=== PATIENT | female | born 1985 | race Caucasian/White ===

== ENCOUNTER 2020-10-09 22:08 | Inpatient (IN) | payer OTHER ==
[~2020-10-09] VITALS: Ht 157.5 cm; Wt 81.0 kg
[2020-10-09 22:53] LABS: HEMATOCRIT 29.1 % (36.0-47.0); HEMOGLOBIN 8.3 g/dl (12.0-15.5); MEAN CORPUSCULAR HEMOGLOBIN 21.8 pg (27.0-33.0); MEAN CORPUSCULAR HGB CONC 28.5 g/dl (32.0-36.5); MEAN CORPUSCULAR VOLUME 76.6 fl (80.0-96.0); PLATELET COUNT, AUTOMATED 187 10^3/uL (150-450); WHITE BLOOD COUNT 6.3 10^3/uL (4.0-10.0)
[2020-10-09] MEDS ORDERED: ONDANSETRON 4 MG ORAL DISINTEGRATING TAB PO ONE (23:00)
[2020-10-09 23:22] LABS: AMPHETAMINES LEVEL URINE NEGATIVE (NEGATIVE); BARBITURATES URINE NEGATIVE (NEGATIVE); BENZODIAZEPINES URINE NEGATIVE (NEGATIVE); CANNABINOIDS URINE NEGATIVE (NEGATIVE); COCAINE METABOLITE URINE NEGATIVE (NEGATIVE); METHADONE URINE NEGATIVE (NEGATIVE); OPIATES URINE NEGATIVE (NEGATIVE); PHENCYCLIDINE URINE NEGATIVE (NEGATIVE)
[2020-10-09 23:38] LABS: ACETAMINOPHEN LEVEL < 2.0 UG/ML (10.0-30.0); ALBUMIN 2.8 GM/DL (3.2-5.2); ALT/SGPT 15 U/L (12-78); BILIRUBIN,DIRECT 0.1 MG/DL (0.0-0.2); BILIRUBIN,TOTAL 0.2 MG/DL (0.2-1.0); BLOOD UREA NITROGEN 9 MG/DL (7-18); CALCIUM LEVEL 7.8 MG/DL (8.5-10.1); CARBON DIOXIDE LEVEL 23 MEQ/L (21-32); CHLORIDE LEVEL 111 MEQ/L (98-107); CREATININE FOR GFR 0.53 MG/DL (0.55-1.30); ETHYL ALCOHOL (ETHANOL) 0.119 % (0.000-0.010); GLOMERULAR FILTRATION RATE > 60.0 (>60); GLUCOSE, FASTING 87 MG/DL (70-100); POTASSIUM SERUM 3.4 MEQ/L (3.5-5.1); SALICYLATE LEVEL < 1.7 MG/DL (5.0-30.0); SODIUM LEVEL 143 MEQ/L (136-145); TOTAL PROTEIN 6.7 GM/DL (6.4-8.2)
[2020-10-10 00:38] LABS: RSV AMPLIFICATION NEGATIVE (NEGATIVE)
[2020-10-10] MEDS ORDERED: MAALOX 30 ML SUSP *UDC PO PRN (01:05)
[2020-10-10] MEDS ORDERED: traZODone 50 MG TAB PO PRN (01:05)
[2020-10-10] MEDS ORDERED: MOM 30ML SUSPENSION UDC PO PRN (01:05)
[2020-10-10] MEDS ORDERED: LORazepam 2 MG TAB PO PRN (01:10)
[2020-10-10] MEDS: THIAMINE 100 MG TAB PO SCH ×3 (01:13→20:18)
[2020-10-10 03:12] VITALS: BP 126/67
[2020-10-10] MEDS: ACETAMINOPHEN TAB 650MG DOSE (2X325MG) PO PRN ×3 (03:27→20:18)
[2020-10-10] MEDS: MULTIVITAMINS/MINERALS THERAP 1 TAB PO SCH (08:53)
[2020-10-10] MEDS: FOLIC ACID 1 MG TAB PO SCH (08:53)
[2020-10-10 11:22] VITALS: BP 114/61
[2020-10-10 14:00] VITALS: BP 124/60
--- NOTE | 2020-10-10 14:01 | HPEPDOC ---
General Date of Admission October 10, 2020 at 01:02 Date of Service: October 10, 2020 Chief Complaint The patient is a 35-year-old female admitted with a reason for visit of Unspecified Depressive Do. Source: Patient History of Present Illness Patient's 35 years old female with past history of EtOH abuse, gastric bypass surgery, depression, anxiety presented hospital with suicidal ideation. Of note patient is 25 weeks . Patient stated that she feels depressed because she can't stop drinking. Reports that she quit taking all her medications when she learned she was and continued to drink ETOH, reports that she has been depressed but that the found out that she was and stopped taking her medications. Pt was brought to the ED by police on a 9.41 after sending text messages with pictures of her by the river to her family & telling them that she was going to jump in. During my interview patient denied fever, chills, nausea, vomiting, chest pain, palpitations diarrhea or dysuria Home Medications No Active Prescriptions or Reported Meds Allergies Coded Allergies: No Known Allergies (Unverified , 10/09/20) Past Medical History Medical History EtOH abuse, gastric bypass surgery, depression, anxiety Surgical History Gastric bypass surgery Family History Mother - HTN, Diabetic, obesity Social History * Smoker: Denies Alcohol: heavy Drugs: denies A-FIB/CHADSVASC A-FIB History Current/History of A-Fib/PAF?: No Current PO Anticoag Therapy: No Review of Systems Constitutional: Denies: Chills, Fever Eyes: Denies: Pain ENT: Denies: Head Aches Skin: Denies: Rash, Lesions Pulmonary: Denies: Cough Cardiovascular: Denies: Chest Pain Gastrointestinal: Denies: Nausea, Vomiting Genitourinary: Denies: Dysuria Hematologic: Denies: Bruising Endocrine: Denies: Polydipsia Musculoskeletal: Denies: Neck Pain Neurological: Denies: Weakness Psych: Reports: Depression Physical Examination General Exam: Positive: Alert, Cooperative Eye Exam: Positive: PERRLA ENT Exam: Positive: Atraumatic Neck Exam: Positive: Supple Chest Exam: Positive: Clear to auscultation Heart Exam: Positive: Rate Normal Telemetry: Positive: No significant arrhythmia Abdomen Exam: Positive: Normal bowel sounds Skin Exam: Positive: Nl turgor and temperature Neuro Exam: Positive: Normal Gait Psych Exam: Positive: Oriented x 3 Vital Signs Vital Signs Date Time Temp Pulse Resp B/P (MAP) Pulse Ox O2 Delivery O2 Flow Rate FiO2 10/10/20 11:22 73 114/61 10/10/20 03:12 99.3 20 98 Room Air Laboratory Data Labs 24H Laboratory Tests 2 10/09/20 22:44: Nucleated Red Blood Cells % (auto) 0.0, Anion Gap 9, Glomerular Filtration Rate > 60.0, Calcium Level 7.8L, Total Bilirubin 0.2, Direct Bilirubin 0.1, Aspartate Amino Transf (AST/SGOT) 21, Alanine Aminotransferase (ALT/SGPT) 15, Alkaline Phosphatase 65, Total Protein 6.7, Albumin 2.8L, Albumin/Globulin Ratio 0.7L, Thyroid Stimulating Hormone (TSH) 1.580, Salicylates Level < 1.7L, Urine Opiates Screen NEGATIVE, Urine Methadone Screen NEGATIVE, Acetaminophen Level < 2.0L, Urine Barbiturates Screen NEGATIVE, Urine Phencyclidine Screen NEGATIVE, Urine Amphetamines Screen NEGATIVE, Urine Benzodiazepines Screen NEGATIVE, Urine Cocaine Metabolite Screen NEGATIVE, Urine Cannabinoids Screen NEGATIVE, Ethyl Alcohol Level 0.119H 10/09/20 23:49: Coronavirus (COVID-19)(PCR) NEGATIVE, Influenza Type A (RT-PCR) NEGATIVE, Influenza Type B (RT-PCR) NEGATIVE, Respiratory Syncytial Virus (PCR) NEGATIVE CBC/BMP Laboratory Tests 10/09/20 22:44 Assessment/Plan Patient's 35 years old female with past history of EtOH abuse, gastric bypass surgery, depression, anxiety presented hospital with suicidal ideation. Of note patient is 25 weeks . Patient stated that she feels depressed because she can't stop drinking. Reports that she quit taking all her medications when she learned she was and continued to drink ETOH, reports that she has been depressed but that the found out that she was and stopped taking her medications. Pt was brought to the ED by police on a 9.41 after sending text messages with pictures of her by the river to her family & telling them that she was going to jump in. During my interview patient denied fever, chills, nausea, vomiting, chest pain, palpitations diarrhea or dysuria Problems (1) Depression with suicidal ideation Status: Acute Problem Text: Deferred treatment to psych team (2) Second trimester Status: Chronic Problem Text: f/u with [facility] PREPAR[facility] OPERATOR team in the outpatient settings (3) ETOH abuse Status: Chronic Problem Text: continue CIWA Plan / VTE VTE Prophylaxis Ordered?: No VTE Exclusion Mechanical Proph: Low Risk for VTE IBRAHIMA CONRAD DO October 10, 2020 14:01
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
[2020-10-10] MEDS ORDERED: SERTRALINE HCL 25 MG TABLET PO ONE (16:00)
[2020-10-10 16:17] VITALS: BP 100/53
[2020-10-10 20:19] VITALS: BP 124/70
[2020-10-10] MEDS ORDERED: diphenhydrAMINE 25MG CAP PO ONE (21:25)
[2020-10-10 22:00] VITALS: BP 124/70
[2020-10-11 06:00] VITALS: BP 107/61
[2020-10-11] MEDS: SERTRALINE HCL 50 MG TAB PO SCH (08:34)
[2020-10-11] MEDS: THIAMINE 100 MG TAB PO SCH ×2 (08:34→20:56)
[2020-10-11] MEDS: FOLIC ACID 1 MG TAB PO SCH (08:34)
[2020-10-11] MEDS: MULTIVITAMINS/MINERALS THERAP 1 TAB PO SCH (08:34)
[2020-10-11] MEDS: ACETAMINOPHEN TAB 650MG DOSE (2X325MG) PO PRN ×2 (08:55→20:56)
[2020-10-11] MEDS ORDERED: hydrOXYzine 25 MG TAB PO PRN (11:30)
[2020-10-11 14:00] VITALS: BP 121/68
[2020-10-11 16:18] VITALS: BP 117/63
--- NOTE | 2020-10-11 16:25 | MHIPNPDOC ---
[facility] Progress Note Progress Note DATE OF SERVICE: 10/11/20 HISTORY: Patient is a 35 -year-old , Unemployed, Domiciled, , female, who reports that she is 25 weeks ", alcoholic, paranoid" with suicidal ideations and was brought to [facility] for her self harm thoughts. Feels depressed because she can't stop drinking. Reports that she quit taking all her medications when she learned she was and continued to drink ETOH, reports that she has been depressed but that the found out that she was and stopped taking her medications. Her depression was worse when she stopped. She drinks a bottle of liquor a day. She drinks ETOH to "shut my head down." States that she has been in rehab before. She didn't want her baby taken away because of her drinking and had refused to tell her WATCH ADJUSTER that she was . Worries that she will lose the child by CPS if she continues to continue drinking. She wants to be sober, wants to keep her baby and reports that she has been to rehab 4-5 times in 3 years. "I want to go back on anti-depressants that are ok for babies". PER ED REPORT: Pt was brought to the ED by police on a 9.41 after sending text messages with pictures of her by the [employer] to her family & telling them that she was going to jump in. Family members called police & [place]. Pt states that she posted a video to Face book of her by the [employer] & that she sent messages with pictures to her cousin & . She states "I didn't say I was going to kill myself, but I didn't say I wasn't going to either." Pt admits that she has had SI for the past few days & that she may have jumped into the river if the police had not found her. Pt states that she is 25 weeks & she has been thinking about ways to "get rid of the baby" such as cutting it out of her stomach. She is afraid that after the baby is born she will have thoughts about wanting to kill it. Pt denies HI. She denies any hx of self-harm. She states that in 2014 she held a razor to her wrist with the intent to kill herself, but she decided to get help & did not actually cut herself. Main stressors are marital px's & alcohol use. Pt states that she & her "fight about everything" & it is all her fault because she is insecure. She states that she made her leave on 10/04/20 but she is upset because he actually left & did not "fight for me." Pt c/o depressed mood, anxiety, anger, poor concentration, poor sleep, & excessive appetite. Pt has a hx of MDD, anxiety, & alcohol use d/o with four admissions to [facility] under the last names of Carlos & Phelan. Pt does not currently have OP tx. She states that she was in tx at [facility] but showed up to an appoint ment drunk in March 2020 so they closed her case. She went to rehab after that & then got shortly after rehab. She states that she has her first therapy appointment at [facility] on 10/13/20. Pt is not currently no meds but states "I need to be." Pt denies drug use & her tox screen was negative. Pt states that she usually drinks at least once a week but has been drinking daily for the past three days. She states that she drinks a "small or medium bottle of hard liquor" when she drinks. Her MARYLIN was 0.119 upon arrival. VITAL SIGNS: See below. CURRENT MEDICATIONS: See below. MENTAL STATUS EXAMINATION: Patient is a 35 -year-old , Unemployed, Domiciled, , female, who reports that she is 25 weeks ", alcoholic, paranoid" with suicidal ideations and was brought to [facility] for her self harm thoughts. Feels depressed because she can't stop drinking. Speech: Is fluid, conversant, normal rate, tone and volume Language skills are intact Thought processes including: linear and goal oriented Thought content: denies depression and anxiety. Denies suicidal/homicidal ideation, planning or intent. Abstract reasoning, and computation: fair Description of associations: denies, none observed Description of abnormal or psychotic thoughts: denies, none observed. Judgment: fair Insight: fair Orientation: alert and oriented to person, place, time and situation Recent and remote memory: intact Attention span and concentration: good Language: expansive Fund of knowledge: average Mood: Euthymic Mood Affect: reactive DIAGNOSES: Major Depressive Disorder, recurrent, moderate Borderline Personality Generalized Anxiety Alcohol Use Disorder Alcohol Intoxication ASSESSMENT: Patient reports no suicidal ideation. Patient mentions Wellbutrin as an adjunct to Zoloft. Educated patient on the possible teratogenic effects based on no controlled studies on women have been done and suggestions that Wellbutrin not be started while patient is . She reports that she is anxious, feeling overwhelmed thinking about her children. Her children are being supervised by her Sister and that her Sister can be more strict with her children than she normally is. She states her anxiety is because she worries about her children and is more anxious at night when she wants to be home. She states her depression is 5/10. She is future oriented, "wants to put her life back on track" and has names several coping skills that she will utilize when she is discharged. Reviewed Zoloft and Hydroxyzine with patient, patient wonders if she needs an increase in Zoloft, educated that this was only started yesterday and can be increased by her outpatient provider. Patient is requesting to be discharged tomorrow. She no longer has any abnormal psychiatric symptoms. She mets criteria for discharge tomorrow. MANAGEMENT PLAN: Continue all medications as ordered. Patient ordered Hydroxyzine 25 mg BID PRN for anxiety TIME SPENT: 25 minutes. Vital Signs Vital Signs Date Time Temp Pulse Resp B/P (MAP) Pulse Ox O2 Delivery O2 Flow Rate FiO2 10/11/20 14:00 71 121/68 10/11/20 06:00 98.3 18 98 Room Air Current Medications Current Medications Medications (Trade) Dose Ordered Sig/Babak Route PRN Reason Start Time Stop Time Status Last Admin Dose Admin Acetaminophen (Tylenol Tab) 650 mg Q6HP PRN PO HEADACHE or DISCOMFORT 10/10/20 01:05 10/11/20 08:55 Al Hydrox/Mg Hydrox/Simethicone (Mylanta) 30 ml Q4HP PRN PO HEARTBURN/INDIGESTION 10/10/20 01:05 Folic Acid (Folic Acid) 1 mg DAILY PO 10/10/20 09:00 10/11/20 08:34 Home Med (Med Rec Complete!) ASDIRECTED XX 10/09/20 23:50 10/09/20 23:57 DC Hydroxyzine HCl (Atarax) 25 mg Q4HP PRN PO ANXIETY/AGITATION 10/11/20 11:30 10/11/20 11:58 Lorazepam (Ativan) 2 mg ASDIRECTED PRN PO SEE PROTOCOL 10/10/20 01:10 Magnesium Hydroxide (Milk Of Magnesia) 30 ml DAILYPRN PRN PO CONSTIPATION 10/10/20 01:05 Multivitamins (Theragram-M) 1 tab DAILY PO 10/10/20 09:00 10/11/20 08:34 Sertraline HCl (Zoloft) 50 mg DAILY PO 10/11/20 09:00 10/11/20 08:34 Thiamine HCl (Thiamine HCl) 100 mg BID PO 10/10/20 01:13 10/12/20 09:01 10/11/20 08:34 Trazodone HCl (Desyrel) 50 mg QHSP PRN PO INSOMNIA 10/10/20 01:05 Allergies Coded Allergies: No Known Allergies (Unverified , 10/09/20) CELI PARDO NP October 11, 2020 16:17
[2020-10-11] MEDS: hydrOXYzine 25 MG TAB PO PRN (20:56)
[2020-10-11 22:00] VITALS: BP 130/70
[2020-10-12 06:25] VITALS: BP 106/58
[2020-10-12 06:44] VITALS: BP 106/58
[2020-10-12] MEDS: FOLIC ACID 1 MG TAB PO SCH (08:34)
[2020-10-12] MEDS: hydrOXYzine 25 MG TAB PO PRN (08:34)
[2020-10-12] MEDS: SERTRALINE HCL 50 MG TAB PO SCH (08:35)
[2020-10-12] MEDS: THIAMINE 100 MG TAB PO SCH (08:35)
[2020-10-12] MEDS: MULTIVITAMINS/MINERALS THERAP 1 TAB PO SCH (08:35)
[2020-10-12] MEDS ORDERED: HYDR-3363 PO (09:12)
[2020-10-12] MEDS ORDERED: SERT50TA29 PO (09:12)
--- NOTE | 2020-10-12 09:43 | MHDSPDOC ---
[facility] Discharge Summary Discharge Summary DATE OF ADMISSION: October 10, 2020 at 01:02 DATE OF DISCHARGE: DISCHARGE DIAGNOSES: Major Depressive Disorder, recurrent, moderate Borderline Personality Generalized Anxiety Alcohol Use Disorder Alcohol Intoxication. REASON FOR ADMISSION: Patient is a 35 -year-old , Unemployed, Domiciled, , female, who reports that she is 25 weeks ", alcoholic, paranoid" with suicidal ideations and was brought to [facility] for her self harm thoughts. Feels depressed because she can't stop drinking. Reports that she quit taking all her medications when she learned she was and continued to drink ETOH, reports that she has been depressed but that the found out that she was and stopped taking her medications. Her depression was worse when she stopped. She drinks a bottle of liquor a day. She drinks ETOH to "shut my head down." States that she has been in rehab before. She didn't want her baby taken away because of her drinking and had refused to tell her RATING SPECIALIST that she was . Worries that she will lose the child by CPS if she continues to continue drinking. She wants to be sober, wants to keep her baby and reports that she has been to rehab 4-5 times in 3 years. "I want to go back on anti- depressants that are ok for babies". PER ED REPORT: Pt was brought to the ED by police on a 9. after sending text messages with pictures of her by the [employer] to her family & telling them that she was going to jump in. Family members called police & she was eventually [place] the [place]. Pt states that she posted a video to Face book of her by the [employer] & that she sent messages with pictures to her cousin & . She states "I didn't say I was going to kill myself, but I didn't say I wasn't going to either." Pt admits that she has had SI for the past few days & that she may have jumped into the river if the police had not found her. Pt states that she is 25 weeks & she has been thinking about ways to "get rid of the baby" such as cutting it out of her stomach. She is afraid that after the baby is born she will have thoughts about wanting to kill it. Pt denies HI. She denies any hx of self-harm. She states that in 2014 she held a razor to her wrist with the intent to kill herself, but she decided to get help & did not actually cut herself. Main stressors are marital px's & alcohol use. Pt states that she & her "fight about everything" & it is all her fault because she is insecure. She states that she made her leave on 10/04/20 but she is upset because he actually left & did not "fight for me." Pt c/o depressed mood, anxiety, anger, poor concentration, poor sleep, & excessive a ppetite. Pt has a hx of MDD, anxiety, & alcohol use d/o with four admissions to [facility] under the last names of Carlos & Phelan. Pt does not currently have OP tx. She states that she was in tx at [facility] but showed up to an appointment drunk in March 2020 so they closed her case. She went to rehab after that & then got shortly after rehab. She states that she has her first therapy appointment at [facility] on 10/13/20. Pt is not currently no meds but states "I need to be." Pt denies drug use & her tox screen was negative. Pt states that she usually drinks at least once a week but has been drinking daily for the past three days. She states that she drinks a "small or medium bottle of hard liquor" when she drinks. Her MARYLIN was 0.119 upon arrival. VITAL SIGNS: See below. CONSULTANTS INVOLVED: See Medical H + P by Hospitalist TREATMENT AND PROGRESS ON THE UNIT: Patient was admitted to the [facility] on a 9.39 legal status he was afforded the following treatment modalities: 1) Individual Therapy 2) Group Therapy 3) Medication Management 4) Milieu Therapy 5) Safe Environment HOSPITAL COURSE: Patient is a 35 -year-old , Unemployed, Domiciled, , female, who reports that she is 25 weeks ", alcoholic, paranoid" with suicidal ideations and was brought to [facility] for her self harm thoughts. She was initially asking to be started on Naltrexone and Campral. Reinforced with her that most medications including Naltrexone and Campral are not safe for . Reviewed Zoloft and Hydroxyzine with patient and she was agreeable. She was started on both and has been compliant with her medications. She has been participating in both individual and group psychotherapy. She states that her symptoms have improved. Her depression has reduced. She rates her depression at 4/10. States that her anxiety has reduced. States that she will use the coping skills she has learned in group therapy to help with her daily stressors. She states that she has the support of her , sister and Gnosticist. She plans to go back to zoroastrian, says that being in Gnosticist grounds her. She is 25 weeks , says that she has been keeping her care appointments and is taking vitamins including iron pills. She states that she hopes the medications and counselling will reduce her depressive symptoms, says she only uses alcohol when she is very depressed. States " I don't even like the taste of alcohol". She is asking to be discharged. Denies SI. Denies HI/AH/VS. At this time, she meets the criteria for discharge. She has an appointment tomorrow with Juan Diego Gan. DISCHARGE ASSESSMENT: In today's interview, patient is alert and oriented, patients dress is appropriate. Hygiene and grooming is well-kempt. Smiles on approach and is pleasant and engaged in the interview. Denies depression and anxiety. Denies suicidal and homicidal ideation, planning or intent. Denies and is not observed with nidia, psychotic symptoms of delusions, bizarre thinking, obsessions, paranoia, ruminations illogical thoughts, flight of ideas or having poor insight and judgement. Patient has normal mentation, declines further hospitalization on a voluntary status and meets criteria for discharge today. Patient encouraged to return to hospital if symptoms worsen or change and encouraged to call unit if he/she/they needs to speak to provider for questions regarding medications or care. MENTAL STATUS EXAMINATION ON DISCHARGE: Patient is a 35 -year-old , Unemployed, Domiciled, , female, who reports that she is 25 weeks ", alcoholic, paranoid" with suicidal ideations and was brought to [facility] for her self harm thoughts. Feels depressed because she can't stop drinking Speech: Is fluid, conversant, normal rate, tone and volume Language skills are intact Thought processes including: linear and goal oriented Thought content: denies depression and anxiety. Denies suicidal/homicidal ideation, planning or intent. Abstract reasoning, and computation: fair Description of associations: denies, none observed Description of abnormal or psychotic thoughts: denies, none observed. Judgment: fair Insight: fair Orientation: alert and oriented to person, place, time and situation Recent and remote memory: intact Attention span and concentration: good Language: expansive Fund of knowledge: average Mood: Euthymic Mood Affect: reactive MEDICATIONS ON DISCHARGE: See Medication Reconciliation PLAN/FOLLOWUP ARRANGEMENTS: Discharge home. Follow up with Juan Diego Gan The amount of time spent in the coordination of care for this patient was approximately 25 minutes. ETOH/Disorder Med Rx ETOH/DRUG DISORDER RX: Offrd @ d/c & pt refused (states that she will no longer drink through her , medications are contraindicated in this trimester) Vital Signs/I&Os Vital Signs Date Time Temp Pulse Resp B/P (MAP) Pulse Ox O2 Delivery O2 Flow Rate FiO2 10/12/20 06:44 72 106/58 10/12/20 06:25 98.4 14 99 Room Air Medications Scheduled Sertraline HCl (Sertraline HCl) 50 Mg Tablet, 50 MG PO DAILY for Depression, #7 Scheduled PRN Hydroxyzine HCl (Hydroxyzine HCl) 25 Mg Tablet, 25 MG PO BID PRN for ANXIETY, #14 Allergies Coded Allergies: No Known Allergies (Unverified , 10/09/20) CELI PARDO NP October 12, 2020 09:43
== END 2020-10-12 11:28 | disposition home or self-care (01) | DRG 566 ==
LOC: M ED 22:08 → M ED INP 10-10 01:02 → M PSY 10-10 02:56
PROVIDERS: ADMIT Psychiatry & Neurology Psychiatry; ATTEND Psychiatry & Neurology Psychiatry
DX: O99.342 Other mental disorders complicating pregnancy, second trimester (principal); F33.1 Major depressive disorder, recurrent, moderate; Z3A.25 25 weeks gestation of pregnancy; R45.851 Suicidal ideations; O99.312 Alcohol use complicating pregnancy, second trimester; F10.129 Alcohol abuse with intoxication, unspecified; F41.1 Generalized anxiety disorder; F60.3 Borderline personality disorder; O99.842 Bariatric surgery status complicating pregnancy, second trimester; Z91.14 Patient's other noncompliance with medication regimen; Z20.822 Contact with and (suspected) exposure to COVID-19

== ENCOUNTER 2020-12-01 18:10 | Emergency (ER) | payer OTHER ==
[~2020-12-01] VITALS: Ht 157.5 cm; Wt 86.1 kg
[~2020-12-01 18:10] MED LIST: HYDR-3363 PO; SERT50TA29 PO
[2020-12-01] MEDS ORDERED: ACE65ERTAB PO (18:16)
--- NOTE | 2020-12-01 19:40 | REP ---
INDICATION: pain/decreased rom/paiin COMPARISON: None. TECHNIQUE: AP, lateral, bilateral oblique views right foot. FINDINGS: The osseous structures and joint spaces are intact and normal. There is no evidence for acute fracture or dislocation. Surrounding soft tissues are unremarkable. No subcutaneous emphysema or radiodense foreign body. IMPRESSION: Age-appropriate right foot radiographs. No acute fracture or dislocation. <Electronically signed by Matias Hernandez > 12/01/201936
[2020-12-01 20:05] VITALS: BP 109/57
== END 2020-12-01 20:11 | disposition home or self-care (01) ==
LOC: M ED 18:10
DX: O9A.213 Injury, poisoning and certain other consequences of external causes complicating pregnancy, third trimester (principal); W22.03XA Walked into furniture, initial encounter; Y92.9 Unspecified place or not applicable; Y93.9 Activity, unspecified; Y99.9 Unspecified external cause status; Z3A.32 32 weeks gestation of pregnancy; O99.843 Bariatric surgery status complicating pregnancy, third trimester; O16.3 Unspecified maternal hypertension, third trimester; O99.513 Diseases of the respiratory system complicating pregnancy, third trimester; O99.613 Diseases of the digestive system complicating pregnancy, third trimester; O99.343 Other mental disorders complicating pregnancy, third trimester; O09.523 Supervision of elderly multigravida, third trimester; Z87.442 Personal history of urinary calculi; Z87.440 Personal history of urinary (tract) infections; Z79.899 Other long term (current) drug therapy

== ENCOUNTER 2022-04-01 18:12 | Emergency (ER) | payer OTHER ==
[~2022-04-01] VITALS: Ht 157.5 cm; Wt 69.6 kg
[2022-04-01 18:12] VITALS: BP 139/85
[~2022-04-01 18:12] MED LIST changes: -BACT800T5 PO; -FLUO40CA; -GABA-1171; -LITH45TASA; -NALT50TA4; -TOPI50TA9
[2022-04-01] MEDS ORDERED: FLUO40CA (18:19)
[2022-04-01] MEDS ORDERED: GABA-1171 (18:19)
[2022-04-01] MEDS ORDERED: TOPI50TA9 (18:19)
[2022-04-01] MEDS ORDERED: LITH45TASA (18:19)
[2022-04-01] MEDS ORDERED: NALT50TA4 (18:19)
[2022-04-01 19:20] LABS: BASO % 0.4 % (0.0-1.0); EOS # 0.1 10^3/uL (0.0-0.5); EOS % 1.8 % (0.0-3.0); HEMATOCRIT 30.7 % (36.0-47.0); HEMOGLOBIN 8.6 g/dl (12.0-15.5); LYMPH # 2.3 10^3/uL (1.5-5.0); LYMPH % 47.2 % (24.0-44.0); MEAN CORPUSCULAR HEMOGLOBIN 21.7 pg (27.0-33.0); MEAN CORPUSCULAR VOLUME 77.3 fl (80.0-96.0); MONO # 0.4 10^3/uL (0.0-0.8); MONO % 7.3 % (2.0-8.0); NEUTROPHILS # 2.1 10^3/uL (1.5-8.5); NEUTROPHILS % 43.3 % (36.0-66.0); PLATELET COUNT, AUTOMATED 293 10^3/uL (150-450); RED BLOOD COUNT 3.97 10^6/uL (4.00-5.40); WHITE BLOOD COUNT 4.9 10^3/uL (4.0-10.0)
[2022-04-01 19:57] LABS: ALBUMIN 3.7 GM/DL (3.2-5.2); ALT/SGPT 23 U/L (12-78); BILIRUBIN,DIRECT < 0.1 MG/DL (0.0-0.2); BILIRUBIN,TOTAL 0.2 MG/DL (0.2-1.0); BLOOD UREA NITROGEN 16 MG/DL (7-18); CALCIUM LEVEL 9.6 MG/DL (8.5-10.1); CARBON DIOXIDE LEVEL 25 MEQ/L (21-32); CHLORIDE LEVEL 110 MEQ/L (98-107); CREATININE FOR GFR 0.72 MG/DL (0.55-1.30); GLOMERULAR FILTRATION RATE > 60.0 (>60); GLUCOSE, FASTING 87 MG/DL (70-100); LIPASE 90 U/L (73-393); SODIUM LEVEL 139 MEQ/L (136-145); TOTAL PROTEIN 7.1 GM/DL (6.4-8.2)
[2022-04-01 20:09] LABS: HCG, SERUM QUALITATIVE NEGATIVE (NEGATIVE)
[2022-04-01] MEDS ORDERED: DICYCLOMINE 10 MG CAP PO ONE (22:15)
[2022-04-01] MEDS ORDERED: KETOROLAC 60MG 2ML VIAL IM ONE (23:30)
[2022-04-01] MEDS ORDERED: BACTRIM 160MG/800MG DS TAB PO ONE (23:30)
[2022-04-01] MEDS ORDERED: BACT800T5 PO (23:31)
== END 2022-04-02 00:09 | disposition home or self-care (01) ==
LOC: M ED 18:12
DX: N39.0 Urinary tract infection, site not specified (principal); I10 Essential (primary) hypertension; J45.909 Unspecified asthma, uncomplicated; K21.9 Gastro-esophageal reflux disease without esophagitis; Z87.442 Personal history of urinary calculi; Z79.811 Long term (current) use of aromatase inhibitors; Z79.899 Other long term (current) drug therapy
CPT/HCPCS: 74018; 80048; 80076; 81000; 81015; 83690; 84703; 85025; 87088; 87186; 96372; 99282; J1885

== ENCOUNTER → 2022-04-01 | Outpatient (CLI) | payer OTHER ==
[~2022-04-01] MED LIST changes: +ACE65ERTAB PO; +BACT800T5 PO; +FLUO40CA; +GABA-1171; +LITH45TASA; +NALT50TA4; +TOPI50TA9
[2022-04-01 13:21] LABS: ALBUMIN 3.8 GM/DL (3.2-5.2); ALT/SGPT 22 U/L (12-78); BILIRUBIN,TOTAL 0.3 MG/DL (0.2-1.0); BLOOD UREA NITROGEN 15 MG/DL (7-18); CALCIUM LEVEL 9.5 MG/DL (8.5-10.1); CARBON DIOXIDE LEVEL 26 MEQ/L (21-32); CHLORIDE LEVEL 110 MEQ/L (98-107); CREATININE FOR GFR 0.72 MG/DL (0.55-1.30); FREE T3 2.2 PG/ML (2.2-4.0); GLOMERULAR FILTRATION RATE > 60.0 (>60); GLUCOSE, FASTING 112 MG/DL (70-100); LITHIUM LEVEL < 0.20 MEQ/L (0.60-1.20); PHOSPHORUS LEVEL 2.9 MG/DL (2.5-4.9); POTASSIUM SERUM 4.1 MEQ/L (3.5-5.1); SODIUM LEVEL 138 MEQ/L (136-145); THYROID STIMULATING HORMONE 0.992 uIU/ML (0.358-3.740); TOTAL PROTEIN 7.1 GM/DL (6.4-8.2)
[2022-04-02 13:11] LABS: TOTAL 25(OH) VITAMIN D 24.8 NG/ML (30.0-100.0)
[2022-04-02 13:17] LABS: VITAMIN B12 LEVEL 405 PG/ML (247-911)
== END ==
LOC: M LAB 12:12
PROVIDERS: ATTEND Registered Nurse Psychiatric/Mental Health
DX: F31.81 Bipolar II disorder (principal)

== ENCOUNTER 2022-07-19 11:50 | Emergency (ER) | payer OTHER ==
[~2022-07-19] VITALS: Ht 157.5 cm; Wt 69.3 kg
[~2022-07-19 11:50] MED LIST changes: +BACT800T5 PO; +FLUO40CA; +GABA-1171; +LITH45TASA; +NALT50TA4; +TOPI50TA9
[2022-07-19] MEDS ORDERED: IBUP80TA (12:15)
[2022-07-19] MEDS ORDERED: NS 1,000 ML IV ONE (12:40)
[2022-07-19 13:05] LABS: BASO % 0.5 % (0.0-1.0); EOS # 0.1 10^3/uL (0.0-0.5); EOS % 0.9 % (0.0-3.0); HEMATOCRIT 27.9 % (36.0-47.0); HEMOGLOBIN 7.4 g/dl (12.0-15.5); LYMPH # 3.8 10^3/uL (1.5-5.0); LYMPH % 66.1 % (24.0-44.0); MEAN CORPUSCULAR HEMOGLOBIN 18.9 pg (27.0-33.0); MEAN CORPUSCULAR HGB CONC 26.5 g/dl (32.0-36.5); MEAN CORPUSCULAR VOLUME 71.4 fl (80.0-96.0); MONO # 0.4 10^3/uL (0.0-0.8); MONO % 6.5 % (2.0-8.0); NEUTROPHILS # 1.5 10^3/uL (1.5-8.5); PLATELET COUNT, AUTOMATED 258 10^3/uL (150-450); RED BLOOD COUNT 3.91 10^6/uL (4.00-5.40); WHITE BLOOD COUNT 5.7 10^3/uL (4.0-10.0)
[2022-07-19] MEDS ORDERED: ISOVUE-370 76% 100ML VIAL As Ordered ONE (13:15)
[2022-07-19] MEDS ORDERED: FERR325T3 PO (14:06)
[2022-07-19] MEDS ORDERED: MAALSUS19 PO (14:07)
[2022-07-19 14:15] VITALS: BP 107/53
== END 2022-07-19 14:28 | disposition home or self-care (01) ==
LOC: M ED 11:50
DX: D50.9 Iron deficiency anemia, unspecified (principal); R13.12 Dysphagia, oropharyngeal phase; I10 Essential (primary) hypertension; J45.909 Unspecified asthma, uncomplicated; Z87.442 Personal history of urinary calculi; Z98.84 Bariatric surgery status; Z79.1 Long term (current) use of non-steroidal anti-inflammatories (NSAID); Z79.52 Long term (current) use of systemic steroids

== ENCOUNTER → 2022-10-26 | Outpatient (CLI) | payer OTHER ==
[~2022-10-26] MED LIST changes: +FERR325T3 PO; +IBUP80TA; +MAALSUS19 PO; +TOPI-254; -TOPI50TA9
[2022-10-26 13:31] LABS: TOTAL IRON BINDING CAPACITY 421 UG/DL (250-425)
[2022-10-26 13:32] LABS: ALBUMIN 4.1 G/DL (3.2-5.2); ALKALINE PHOSPHATASE 67 U/L (46-116); ALT/SGPT 15 U/L (7.0-40); AST/SGOT 17 U/L (<34); BILIRUBIN,TOTAL 0.3 MG/DL (0.3-1.2); BLOOD UREA NITROGEN 17 MG/DL (9-23); CALCIUM LEVEL 10.3 MG/DL (8.5-10.1); CARBON DIOXIDE LEVEL 22 MMOL/L (20-31); CHLORIDE LEVEL 108 MMOL/L (98-107); CHOLESTEROL LEVEL 137 MG/DL (<200); CHOLESTEROL RISK RATIO 1.86 (<5); CREATININE FOR GFR 0.87 MG/DL (0.55-1.30); FOLATE 12.3 NG/ML (>5.4); GLOMERULAR FILTRATION RATE > 60.0 (>60); GLUCOSE, FASTING 86 MG/DL (60-100); HDL CHOLESTEROL 73.3 MG/DL (>40); IRON (FE) 9 UG/DL (50-170); LDL CHOLESTEROL 56.3 MG/DL (<100); NON-HDL-C 63.7 MG/DL; PERCENT SATURATION 2.1 % (13.2-45.0); POTASSIUM SERUM 4.3 MMOL/L (3.5-5.1); SODIUM LEVEL 139 MMOL/L (136-145); THYROID STIMULATING HORMONE 1.801 uIU/ML (0.55-4.78); TOTAL 25(OH) VITAMIN D 18.3 NG/ML (20.0-100.0); TOTAL PROTEIN 6.8 G/DL (5.7-8.2); TRIGLYCERIDES LEVEL 37 MG/DL (<150); VITAMIN B12 LEVEL 438 PG/ML (211-911)
[2022-10-26 13:39] LABS: HEMATOCRIT 27.9 % (36.0-47.0); HEMOGLOBIN 7.7 g/dl (12.0-15.5); MEAN CORPUSCULAR HEMOGLOBIN 18.2 pg (27.0-33.0); MEAN CORPUSCULAR HGB CONC 27.6 g/dl (32.0-36.5); MEAN CORPUSCULAR VOLUME 65.8 fl (80.0-96.0); PLATELET COUNT, AUTOMATED 240 10^3/uL (150-450); RED BLOOD COUNT 4.24 10^6/uL (4.00-5.40); WHITE BLOOD COUNT 4.6 10^3/uL (4.0-10.0)
== END ==
LOC: M PLALAB 09:29
PROVIDERS: ATTEND Family Medicine
DX: E55.9 Vitamin D deficiency, unspecified (principal); D50.9 Iron deficiency anemia, unspecified; R00.2 Palpitations; Z98.84 Bariatric surgery status

== ENCOUNTER 2022-11-23 10:37 | Outpatient (CLI) | payer OTHER ==
[2022-11-23 12:25] VITALS: BP 114/66; O2SAT 100
[2022-11-23 13:09] VITALS: BP 114/66; TEMP 98.1; O2SAT 100
[2022-11-23 13:30] VITALS: BP 112/59; O2SAT 100
[2022-11-23 14:30] VITALS: BP 117/61; O2SAT 100
[2022-11-23 15:10] VITALS: BP 124/60; O2SAT 100
== END 2022-11-23 15:15 ==
LOC: M INFU 10:37
PROVIDERS: ATTEND Family Medicine
DX: D50.9 Iron deficiency anemia, unspecified (principal)
CPT/HCPCS: 36415; 36430; 86850; 86900; 86901; 86920; P9016

== ENCOUNTER 2022-12-06 11:35 | Outpatient (CLI) | payer OTHER ==
[~2022-12-06] VITALS: Ht 160 cm; Wt 64.4 kg
[~2022-12-06 11:35] MED LIST changes: +ALBUTEROL SULFATE 2.5MG/0.5ML INH NEB SOLN INH PRN; +EPINEPHrine INJ 1 MG/ML 1ML AMP IM PRN; +FERRIC CARBOXYMALTOSE INJ 750 MG in NS 250 ML (>50kg) IV ONE; +NS 1,000 ML IV SCH; +diphenhydrAMINE 50MG/ML VIAL IV PRN; +methylPREDNISolone 125MG 2ML VIAL IV PRN
[2022-12-06 11:53] VITALS: BP 114/54; O2SAT 99
[2022-12-06 13:00] VITALS: BP 109/63; O2SAT 99
== END 2022-12-06 13:00 ==
LOC: M INFU 11:35
PROVIDERS: ATTEND Family Medicine
DX: D50.9 Iron deficiency anemia, unspecified (principal)
CPT/HCPCS: 96365; J1439